=== PATIENT | female | born 1995 | race Caucasian/White ===

== ENCOUNTER → 2018-02-23 | Outpatient (REF) | payer OTHER | LOC: M SFHCLERA 15:18 | DX: R30.0 Dysuria (principal) ==

== ENCOUNTER → 2019-05-28 | Outpatient (CLI) | payer OTHER ==
--- NOTE | 2019-05-28 18:01 | REP ---
REASON: Assess IUD placement. PRIORS: None. Transvesical and transvaginal imaging was obtained. The uterus measures 7.3 x 3.2 x 4.3 cm. The parenchymal echo pattern is within normal limits. Within the endometrial cavity there is a specular reflection consistent with an IUD. There is no free fluid in the cul-de-sac. Right ovary measures 2.8 x 2.8 x 3.3 cm and is within normal limits with an RI of 0.58. Left ovary measures 2.8 x 1.6 x 2 cm and is within normal limits with an RI of 0.48. Urinary bladder measures 7 x 6 x 8 cm. IMPRESSION: Normal pelvic ultrasound with IUD in proper position. Electronically Signed by Juan Pablo Greenwood DO 05/28/2019 06:06 P
== END ==
LOC: M RAD 16:18
PROVIDERS: ATTEND Nurse Practitioner Family
DX: Z30.431 Encounter for routine checking of intrauterine contraceptive device (principal)

== ENCOUNTER → 2019-12-15 | Outpatient (REF) | payer OTHER | LOC: M SFHCLERA 09:25 | PROVIDERS: ATTEND Physician Assistant | DX: J02.9 Acute pharyngitis, unspecified (principal) ==

== ENCOUNTER → 2019-12-15 | Outpatient (CLI) | payer OTHER | LOC: M LRY 08:25 | DX: Z53.9 Procedure and treatment not carried out, unspecified reason (principal) ==

== ENCOUNTER → 2020-04-04 | Outpatient (REF) | payer OTHER ==
[2020-04-04 15:37] LABS: HEMOGLOBIN 13.3 g/dl (12.0-15.5); MEAN CORPUSCULAR HEMOGLOBIN 29.5 pg (27.0-33.0); MEAN CORPUSCULAR HGB CONC 33.3 g/dl (32.0-36.5); MEAN CORPUSCULAR VOLUME 88.7 fl (80.0-96.0); PLATELET COUNT, AUTOMATED 344 10^3/uL (150-450); RED BLOOD COUNT 4.51 10^6/uL (4.00-5.40)
[2020-04-04 16:44] LABS: HEPATITIS C VIRUS ABY INDEX 0.2 INDEX (<0.8); HIV 1&2 SCREEN CENTAUR NEGATIVE (NEGATIVE)
[2020-04-04 20:42] LABS: CHLAMYDIA DNA AMPLIFICATION NEGATIVE (NEGATIVE); GC DNA AMPLIFICATION NEGATIVE (NEGATIVE)
== END ==
LOC: M PLALAB 13:41
PROVIDERS: ATTEND Advanced Practice Midwife
DX: Z34.01 Encounter for supervision of normal first pregnancy, first trimester (principal)

== ENCOUNTER → 2020-06-16 | Outpatient (CLI) | payer OTHER ==
[~2020-06-16] MED LIST: prenatal vit
--- NOTE | 2020-07-11 11:17 | REP ---
COMPLETE OBSTETRIC ULTRASOUND CLINICAL: Anatomical assessment. TECHNIQUE: Transabdominal obstetric ultrasound with color Doppler evaluation. FINDINGS: Ultrasound examination demonstrates a single live intrauterine in transverse lie with head to maternal right. motion was identified by the technologist. Placenta is noted anteriorly and grade 0 without evidence for placenta previa or abruption. Amniotic fluid volume is subjectively normal. Cervix measures 4.0 cm in length and appears closed. heart rate equals 152 beats per minute. MEASUREMENTS BPD 42 mm 19 weeks 0 days HC 170 mm 19 weeks 5 days AC 144 mm 19 weeks 6 days FL 30 mm 19 weeks 5 days HL 2.9 mm 19 weeks 4 days Estimated gestational age by current measurements 19 weeks 4 days with estimated date of delivery 11/06/2020. Estimated weight 305 grams (88th percentile). Anatomical assessment demonstrates normal cisterna magna, cavum, thalamus, spine, stomach, kidneys/bladder, four chamber heart/cardiac ventricular outflow tracts, three-vessel cord/cord insertion, facial features, and extremities. IMPRESSION: Single live intrauterine in transverse lie demonstrating appropriate estimated weight and growth. Anatomical assessment is complete and normal. No gross abnormalities are identified. MTDD
== END ==
LOC: M WHC 11:25
PROVIDERS: ATTEND Advanced Practice Midwife
DX: Z36.89 Encounter for other specified antenatal screening (principal); Z3A.19 19 weeks gestation of pregnancy

== ENCOUNTER 2020-06-27 07:04 | Emergency (ER) | payer OTHER ==
[~2020-06-27] VITALS: Ht 165.1 cm; Wt 77.2 kg
[2020-06-27] MEDS ORDERED: prenatal vit (07:11)
[2020-06-27] MEDS ORDERED: NS 1,000 ML IV ONE (07:30)
[2020-06-27] MEDS ORDERED: METOCLOPRAMIDE INJ 10MG/2ML VIAL (J2765 PER 1) IV ONE (07:30)
[2020-06-27] MEDS ORDERED: ACETAMINOPHEN 500 MG TAB PO ONE (07:30)
[2020-06-27 08:03] LABS: BASO % 0.3 % (0.0-1.0); EOS # 0.4 10^3/uL (0.0-0.5); EOS % 3.2 % (0.0-3.0); HEMATOCRIT 36.7 % (36.0-47.0); HEMOGLOBIN 12.3 g/dl (12.0-15.5); LYMPH # 1.5 10^3/uL (1.5-5.0); LYMPH % 13.3 % (24.0-44.0); MEAN CORPUSCULAR HEMOGLOBIN 30.8 pg (27.0-33.0); MEAN CORPUSCULAR HGB CONC 33.5 g/dl (32.0-36.5); MEAN CORPUSCULAR VOLUME 91.8 fl (80.0-96.0); MONO # 0.5 10^3/uL (0.0-0.8); MONO % 4.6 % (0.0-5.0); NEUTROPHILS # 8.8 10^3/uL (1.5-8.5); NEUTROPHILS % 77.5 % (36.0-66.0); PLATELET COUNT, AUTOMATED 268 10^3/uL (150-450); WHITE BLOOD COUNT 11.4 10^3/uL (4.0-10.0)
[2020-06-27 08:23] LABS: BLOOD UREA NITROGEN 5 MG/DL (7-18); CALCIUM LEVEL 8.7 MG/DL (8.5-10.1); CARBON DIOXIDE LEVEL 24 MEQ/L (21-32); CHLORIDE LEVEL 108 MEQ/L (98-107); CREATININE FOR GFR 0.59 MG/DL (0.55-1.30); GLOMERULAR FILTRATION RATE > 60.0 (>60); GLUCOSE, FASTING 85 MG/DL (70-100); POTASSIUM SERUM 4.1 MEQ/L (3.5-5.1); SODIUM LEVEL 139 MEQ/L (136-145)
[2020-06-27 10:38] VITALS: BP 140/86
== END 2020-06-27 10:40 | disposition home or self-care (01) ==
LOC: M ED 07:04
DX: O99.89 Other specified diseases and conditions complicating pregnancy, childbirth and the puerperium (principal); R51 Headache; Z3A.20 20 weeks gestation of pregnancy
CPT/HCPCS: 80048; 85025; 96361; 96374; 99284; J2765

== ENCOUNTER → 2020-08-05 | Outpatient (REF) | payer OTHER ==
[2020-08-05 13:32] LABS: HEMATOCRIT 36.4 % (36.0-47.0); HEMOGLOBIN 11.6 g/dl (12.0-15.5); MEAN CORPUSCULAR HEMOGLOBIN 29.7 pg (27.0-33.0); MEAN CORPUSCULAR HGB CONC 31.9 g/dl (32.0-36.5); MEAN CORPUSCULAR VOLUME 93.3 fl (80.0-96.0); PLATELET COUNT, AUTOMATED 296 10^3/uL (150-450); WHITE BLOOD COUNT 13.7 10^3/uL (4.0-10.0)
== END ==
LOC: M PLALAB 10:11
PROVIDERS: ATTEND Advanced Practice Midwife
DX: Z34.02 Encounter for supervision of normal first pregnancy, second trimester (principal)

== ENCOUNTER 2020-09-15 08:59 | Outpatient (CLI) | payer OTHER ==
[~2020-09-15] VITALS: Ht 165.1 cm; Wt 84.2 kg
[2020-09-15 09:10] VITALS: BP 122/67
[2020-09-15] MEDS ORDERED: LR 1,000 ML IV SCH (09:16)
[2020-09-15] MEDS ORDERED: LACTATED RINGER'S 1000 ML IV STA (09:16)
[2020-09-15 09:57] LABS: HEMOGLOBIN 10.8 g/dl (12.0-15.5); MEAN CORPUSCULAR HEMOGLOBIN 28.9 pg (27.0-33.0); MEAN CORPUSCULAR HGB CONC 31.8 g/dl (32.0-36.5); MEAN CORPUSCULAR VOLUME 90.9 fl (80.0-96.0); PLATELET COUNT, AUTOMATED 282 10^3/uL (150-450); RED BLOOD COUNT 3.74 10^6/uL (4.00-5.40); WHITE BLOOD COUNT 13.6 10^3/uL (4.0-10.0)
[2020-09-15 10:49] LABS: APPEARANCE, URINE HAZY (CLEAR); BACTERIA, URINE AUTO NEGATIVE (NEGATIVE); BILIRUBIN, URINE AUTO NEGATIVE (NEGATIVE); BLOOD, URINE BLOOD 1+ (NEGATIVE); COLOR, URINE YELLOW (YELLOW); GLUCOSE, URINE (UA) AUTO NEGATIVE (NEGATIVE); KETONE, URINE AUTO NEGATIVE (NEGATIVE); LEUKOCYTE ESTERASE, URINE AUTO NEGATIVE (NEGATIVE); MUCUS, URINE SMALL (NEGATIVE); NITRITE, URINE AUTO NEGATIVE (NEGATIVE); PROTEIN, URINE AUTO NEGATIVE (NEGATIVE); RBC, URINE AUTO 8 /HPF (0-3); SPECIFIC GRAVITY URINE AUTO 1.019 (1.002-1.035); SQUAMOUS EPITHELIAL CELL UR AU 3 /HPF (0-6); UROBILINOGEN, URINE AUTO 0.2 mg/dL (0.0-2.0); WBC, URINE AUTO 2 /HPF (0-3)
[2020-09-15] MEDS ORDERED: PROMETHAZINE INJ 25 MG/ML VIAL (J2550) IV PRN (11:30)
[2020-09-15] MEDS ORDERED: MORPHINE 4 MG/ML 1ML VIAL/SYRINGE (J2270) IV ONE (11:30)
--- NOTE | 2020-09-15 11:33 | REP ---
INDICATION: flank pain. Thirty-one weeks gestation. COMPARISON: None. TECHNIQUE: Transabdominal urinary tract sonography. FINDINGS: Scanning of the level of the urinary bladder shows a subtle echogenic focus the right posterior bladder wall in the region of the ureteral 0 vesicle junction. There is absence of emptying ureteral jets from the right ureter. Emptying jets are noted repeatedly on the left.. Renal cortical echogenicity pattern is normal bilaterally and contours are smooth. There is mild to moderate right-sided hydronephrosis. The right ureter is not directly seen. No intrarenal calculus is observed. Right kidney measures 11.2 x 6.1 x 6.3 cm. Resistive index in the intralobar arteries of the right kidney is slightly elevated at 0.69 compared to 0.56 on the left. Left renal dimensions are 11.2 x 6.0 x 6.2 cm. No left-sided hydronephrosis is seen. No cyst or mass is observed... IMPRESSION: Mild to moderate right-sided hydronephrosis. Absence of emptying ureteral jets from the right kidney. Question distal ureteral stone visible at the UVJ on two-dimensional scanning.. <Electronically signed by Eric Buck > 09/15/20 [id number]
[2020-09-15] MEDS ORDERED: TAMSULOSIN 0.4 MG CAP PO ONE (12:00)
[2020-09-15] MEDS ORDERED: FLOM0.4C39 PO (16:05)
[2020-09-15] MEDS ORDERED: OXYC1TAB23 PO (16:07)
--- NOTE | 2020-09-15 16:44 | IPNPDOC ---
Text Note Date of Service The patient was seen on 09/15/20. NOTE S: 24yo G1 at 30w6d with right flank pain. Denies f/c, vaginal bleeding, LOF or ctx O: vs, AF cat 1 tracing, no ctx gen: well appearing abd: nttp bacK: no CVA tenderness cx: deferred Renal showing mile to moderate hydronephrosis with ? sonte in distal ureter. -Patient given .4mg flomax, 4mg morphine and 12.5mg phenergan with improvement of her pain A/P: 24yo G1 at 30w6d with right renal stone Reassuring status -home with percocet#14, flomax#14 -PTL and fever precautions - f/u at next OB appt Annmarie Massey MD VS,Remberto, I+O VSRebmerto, I+O Laboratory Tests 09/15/20 09:40 Vital Signs Date Time Temp Pulse Resp B/P (MAP) Pulse Ox O2 Delivery O2 Flow Rate FiO2 09/15/20 11:58 20 09/15/20 11:30 Room Air 09/15/20 09:10 98.3 106 122/67 (85) ANNMARIE MASSEY MD. Sep 15, 2020 16:44
--- NOTE | 2020-09-16 07:36 | REP ---
INDICATION: flank pain COMPARISON: 06/16/2020 TECHNIQUE: Transabdominal obstetrical ultrasound with color Doppler evaluation. FINDINGS: Examination demonstrates a single live advanced intrauterine in cephalic presentation. motion is identified by technologist. Placenta is noted right lateral and grade 1 without evidence for placenta previa or abruption. Amniotic fluid volume is normal. Cervix appears closed. Gestational age by 1st ultrasound 32 weeks 3 days with ANNA 11/07/2020. FHR equals 135 beats per minute. Biophysical profile score: 8/8 TERA: 9.4 cm (8.5-24.3) IMPRESSION: Single live advanced gestation in cephalic presentation demonstrating appropriate amniotic fluid index and biophysical profile score. <Electronically signed by David Dutton > 09/16/20 [id number]
== END 2020-09-15 14:30 | disposition home or self-care (01) ==
LOC: M LDO 08:59
PROVIDERS: ATTEND Obstetrics & Gynecology
DX: O26.833 Pregnancy related renal disease, third trimester (principal); N20.0 Calculus of kidney; Z3A.30 30 weeks gestation of pregnancy
CPT/HCPCS: 59025; 76775; 76819; 81001; 85027; 87086; 96374; 96375; G0378; G0463; J2270

== ENCOUNTER → 2020-10-17 | Outpatient (REF) | payer OTHER ==
[~2020-10-17] MED LIST changes: +FLOM0.4C39 PO; +OXYC1TAB23 PO
== END ==
LOC: M PLALAB 14:15
PROVIDERS: ATTEND Obstetrics & Gynecology
DX: Z34.93 Encounter for supervision of normal pregnancy, unspecified, third trimester (principal); Z3A.36 36 weeks gestation of pregnancy

== ENCOUNTER 2020-11-08 08:48 | Outpatient (CLI) | payer OTHER ==
[~2020-11-08] VITALS: Ht 165.1 cm; Wt 87.5 kg
[2020-11-08 09:16] VITALS: BP 132/85
[2020-11-08 09:45] VITALS: BP 131/86
[2020-11-08] MEDS ORDERED: TUMS500C PO (09:52)
[2020-11-08 10:12] VITALS: BP 126/64
[2020-11-08 10:15] LABS: HEMATOCRIT 38.1 % (36.0-47.0); HEMOGLOBIN 12.3 g/dl (12.0-15.5); MEAN CORPUSCULAR HEMOGLOBIN 29.3 pg (27.0-33.0); MEAN CORPUSCULAR HGB CONC 32.3 g/dl (32.0-36.5); MEAN CORPUSCULAR VOLUME 90.7 fl (80.0-96.0); PLATELET COUNT, AUTOMATED 262 10^3/uL (150-450); WHITE BLOOD COUNT 11.9 10^3/uL (4.0-10.0)
[2020-11-08 10:33] LABS: TOTAL PROTEIN,RANDOM URINE 23.9 MG/DL (0.0-12.0)
[2020-11-08 10:42] VITALS: BP 113/63
[2020-11-08 10:42] LABS: ALT/SGPT 14 U/L (12-78); BILIRUBIN,TOTAL 0.2 MG/DL (0.2-1.0); CREATININE FOR GFR 0.63 MG/DL (0.55-1.30); GLOMERULAR FILTRATION RATE > 60.0 (>60); LDH LACTATE DEHYDROGENASE 202 U/L (84-246); URIC ACID 3.8 MG/DL (2.6-6.0)
[2020-11-08 11:12] VITALS: BP 95/53
--- NOTE | 2020-11-08 13:36 | IPNPDOC ---
Text Note Date of Service The patient was seen on 11/08/20. NOTE S: 24yo G1 at 39w4d presents from clinic for evaluation for elevated BP. Denies headaches, visual changes, abd pain, ctx, LOF or vaginal bleeding. O: vs serial BP wnl. Cat 1 tracing Gen: well appearing abd: soft, gravid, nttp Labs:WNL A/P: 24yo G1 at 39w4d with isolated elevated BP, no further hypertension reassuring status -home with Labor precautions and FKCs -f/u at next OB appt. Annmarie Massey MD VS,Remberto, I+O VS, Remberto I+O Laboratory Tests 11/08/20 09:49 Vital Signs Date Time Temp Pulse Resp B/P (MAP) Pulse Ox O2 Delivery O2 Flow Rate FiO2 11/08/20 11:12 73 18 95/53 (67) 11/08/20 09:16 98.0 ANNMARIE MASSEY MD. Nov 08, 2020 13:36
== END 2020-11-08 11:30 | disposition home or self-care (01) ==
LOC: M LDO 08:48
PROVIDERS: ATTEND Obstetrics & Gynecology
DX: O16.3 Unspecified maternal hypertension, third trimester (principal); Z3A.39 39 weeks gestation of pregnancy
CPT/HCPCS: 36415; 59025; 82247; 82565; 82570; 83615; 84156; 84450; 84460; 84550; 85027; G0378; G0463

== ENCOUNTER 2020-11-14 01:08 | Inpatient (IN) | payer OTHER ==
[2020-11-14] VITALS (26 sets, daily range): BP systolic 87–149; BP diastolic 50–87
[~2020-11-14] VITALS: Ht 165.1 cm; Wt 89.4 kg
[~2020-11-14 01:08] MED LIST changes: +TUMS500C PO
--- NOTE | 2020-11-14 02:46 | HPEPDOC ---
Obstetrical History & Physical General Date of Admission Nov 14, 2020 at 01:39 History of Present Illness 24 yo at 40 3/7 weeks by LMP c/w ultrasound (EDC=11/11/2020) presents after having SW=445/100 at home on two occasions. She had increased swelling in her lower extremities. no CARSON's. She had one isolated elevated BP in the office the prior week. Information Provided By: Patient Age: 24 : 1 Term: 0 Pre-term: 0 Abortions: 0 Livin Care Care: Good Care Dating Final EDC by: LMP, 1st trimester (US) Estimated Date of Confinement: Nov 11, 2020 Past Medical History Past Obstetrical History : Past Obstetrical History: [employer] History: No pertinent history Past Medical History Surgical History: Denies/None Social History Family situation: Spouse/partner home Psychosocial History: No pertinent psych hx * Smoker: non-smoker Allergies Coded Allergies: No Known Allergies (Unverified , 09/15/20) Medications Scheduled PRN Calcium Carbonate (Tums) 200 Mg Tab.chew, 500 MG PO for INDIGESTION Miscellaneous Medications [ vit] Physical Examination Physical Examination GENERAL: Alert and oriented times three. BREAST: . ABDOMEN: Gravid and non-tender to touch. FETUS: Is vertex (VTX) by sterile vaginal examination (SVE), fetus is vertex (VTX) by [place]. HEART RATE: Regular rate and rhythm. LUNGS: Clear to auscultation (CTA). EXTREMITIES: No edema. No clonus. Deep tendon reflexes (DTRs) + . Laboratory Data 24H LABS Laboratory Tests 2 11/14/20 01:48: Serology Scanned Report Hepatitis B Testing Pertinent Laboratoy Data Group B Streptococcus: Negative Vaginal Examination Dilation: 1cm Effacement: 70% Station: -2 Cervical Consistency: Soft Cervical Position: Posterior Presentation: Cephalic presentation Assessment Variability: Moderate Accelerations: Positive Decelerations: None Tocometer Contractions: Yes Frequency: irregular Assessment/Plan Assessment Pt is a 24-year-old (G)1 para (P)0 at 40+3 weeks by ultrasound presents to Labor and Delivery (L&D) for labor induction . Plan BP within reasonable range here Admit and orient. Cutting Supervisor and consent. Group B Streptococcus (GBS)negative C-S as appropriate. PONCE MEADOWS MD Nov 14, 2020 02:46
[2020-11-14 02:57] LABS: HEMATOCRIT 37.2 % (36.0-47.0); HEMOGLOBIN 11.7 g/dl (12.0-15.5); MEAN CORPUSCULAR HEMOGLOBIN 28.6 pg (27.0-33.0); MEAN CORPUSCULAR HGB CONC 31.5 g/dl (32.0-36.5); PLATELET COUNT, AUTOMATED 251 10^3/uL (150-450); RED BLOOD COUNT 4.09 10^6/uL (4.00-5.40); WHITE BLOOD COUNT 11.8 10^3/uL (4.0-10.0)
[2020-11-14] MEDS: miSOPROStol 50MCG 1/2 TABLET SL SCH ×2 (03:11→08:17)
[2020-11-14 03:22] LABS: ALT/SGPT 11 U/L (12-78); BILIRUBIN,TOTAL 0.4 MG/DL (0.2-1.0); CREATININE FOR GFR 0.68 MG/DL (0.55-1.30); GLOMERULAR FILTRATION RATE > 60.0 (>60); LDH LACTATE DEHYDROGENASE 154 U/L (84-246); URIC ACID 3.8 MG/DL (2.6-6.0)
--- NOTE | 2020-11-14 11:02 | IPNPDOC ---
Obstetrical Progress Note Date of Service Nov 14, 2020 Subjective Mary is very uncomfortable after 2nd dose of cytotec, crying through contractions. She has been in the tub and moving around the room this morning. Requesting an epidural. Objective Vital Signs Date Time Temp Pulse Resp B/P (MAP) Pulse Ox O2 Delivery O2 Flow Rate FiO2 11/14/20 08:11 99.2 80 124/69 (87) 11/14/20 04:05 17 Assessment Heart Rate (FHR): 125 Variability: Moderate Accelerations: Positive Decelerations: None Heart Rate Tracing: Category I Tocometer Contractions: Yes Frequency: regular, other (2-4min.) Duration: greater than 60 seconds Strength: palpated as moderate, resting tone palp/soft Sterile Vaginal Examination Dilation: 1cm (1-2) Effacement (%): other (95%) Station: -1 Cervical Consistency: Soft Cervical Position: Posterior Postion/Presentation: Cephalic presentation Assessment and Plan Age: 24 : 1 Term: 0 Pre-term: 0 Abortions: 0 Livin EGA at Admission: 40.3 Status: Reassuring Group B Streptococcus: Negative Anticipate: Vaginal Delivery Additional Comments Plan for patient to get an epidural for labor pain management. TOI PLATA CNM Nov 14, 2020 11:02
[2020-11-14] MEDS ORDERED: FENTANYL 2MCG/ML ROPIVACAINE 0.2% IN 0.9% NACL 100ML IVBAG As Ordered ONE (11:17)
[2020-11-14] MEDS: LR 1,000 ML IV SCH ×2 (12:24→15:38)
[2020-11-14] MEDS ORDERED: ONDANSETRON 4MG/2ML VIAL IV PRN (12:45)
[2020-11-14] MEDS ORDERED: REFRIGERATOR IV KEYS XX PRN (12:45)
[2020-11-14] MEDS ORDERED: FENTANYL/ROPIVACAINE/NACL BAG 100 ML EPIDURAL SCH (12:45)
[2020-11-14] MEDS ORDERED: EPIDURAL/PCA KEYS XX PRN (12:45)
[2020-11-14] MEDS ORDERED: NALOXONE INJ 0.4MG/1ML VIAL (J2310 PER 1MG) IV PRN (12:45)
[2020-11-14] MEDS ORDERED: LACTATED RINGER'S 1000 ML IV PRN (12:45)
[2020-11-14] MEDS ORDERED: EPIDURAL COMMENT XX SCH (12:45)
[2020-11-14] MEDS ORDERED: ePHEDrine SULFATE 25 MG/5 ML(5MG/ML) SYRINGE IV PRN (12:45)
[2020-11-14] MEDS ORDERED: diphenhydrAMINE 50MG/ML VIAL (J1200) IV PRN (12:45)
[2020-11-14] MEDS ORDERED: OXYTOCIN DRIP 30 UNITS in IV 1 EA IV SCH ×2 (13:00→17:59)
[2020-11-14] MEDS ORDERED: BENZOCAINE 20% HEMORRHOIDAL OINTMENT 28GM TUBE TOP PRN (18:00)
[2020-11-14] MEDS ORDERED: DOCUSATE SODIUM 100MG CAPSULE PO PRN (18:00)
[2020-11-14] MEDS ORDERED: MEASLES,MUMPS,RUBELLA VACCINE INJ (MMR-II) (90707) SC SCH (18:00)
[2020-11-14] MEDS ORDERED: ANUSOL HC CREAM 30GM TOP PRN (18:00)
[2020-11-14] MEDS ORDERED: ACETAMINOPHEN TAB 650MG DOSE (2X325MG) PO PRN (18:00)
[2020-11-14] MEDS ORDERED: RHOGAM 300 MCG (1500 IU) INJ (J2790) IM SCH (18:00)
[2020-11-14] MEDS ORDERED: ACETAMINOPHEN 500 MG TAB PO PRN (18:00)
[2020-11-14] MEDS ORDERED: METHYLERGONOVINE MALEATE 0.2 MG TAB PO PRN (18:00)
--- NOTE | 2020-11-14 18:09 | DNPDOC ---
[facility] Delivery Note Delivery Note DATE OF DELIVERY: 11/14/2020 @ 1733 PREDELIVERY DIAGNOSIS: 40-3/7 weeks' gestation and labor. POST DELIVERY DIAGNOSIS: Delivered. PROCEDURE: Spontaneous vaginal delivery PROVIDER: Toi Plunkett CNM, SEBASTIAN and MARISSA Hou ANESTHESIA: Epidural. ESTIMATED BLOOD LOSS: 400 mL. FINDINGS: 7 pound 7 ounce, 3370g Male , Score 8/9, left compound hand DELIVERY SUMMARY: Mary is a 24-year-old 1 now para 1-0-0-1 who was admitted to labor and delivery for elective IOL. Cytotec x2, then Pitocin was started post epidural. She progressed to full dilation at 1654 and began pushing. head delivered OA with restitution to LOT, anterior shoulder and corpus followed with maternal pushing efforts. Right compound hand with delivery. Infant placed skin to skin on maternal abdomen, vigorous with st imulation. Delayed cord clamping until pulsations ceased. Cord clamped x2 and cut by FOB. Cord blood collected. 3 vessel cord noted. Intact placenta via Hay mechanism delivered at 1745. Fundal massage and IV Pitocin bolus initiated. Uterine sweep released clots from cervix. Fundus firmed to umbilicus. Vagina, perineum, and cervix examined for lacerations, intact, no repair needed. Sponges counted and correct. Parents plan to name him "Vinh" and breastfeed. Mother and infant left in stable condition. TOI PLUNKETT CNM Nov 14, 2020 18:09
[2020-11-14] MEDS: IBUPROFEN 600MG TAB PO PRN (20:00)
[2020-11-15 06:00] VITALS: BP 139/63
--- NOTE | 2020-11-15 07:15 | IPNPDOC ---
Progress Note Date of Service: Nov 15, 2020 Day#: 1 Progress Note SUBJECT: Mary is a 24-year-old 1 now Para 1-0-0-1 status post uncomp licated spontaneous vaginal delivery, doing well day # 1. She has been ambulating, voiding spontaneously without issue and tolerating regular diet. without issue. Reports lochia is like a normal period. Pain well controlled with Tylenol and Motrin. Denies chest pain, SOB, headache, visual changes, nausea, epigastric pain. OBJECTIVE: VITAL SIGNS: Within normal limits, afebrile. Alert and oriented times three. Respirations regular, no accessory muscle use. Abdomen: Fundus firm at U-2. Soft, NTTP. Extremities: No edema, no calf tenderness. Minimal lochia. ASSESSMENT: Day 1 PLAN: 1. Discharge to home tomorrow. 2. Tylenol and Motrin for pain. 3. Encourage and ambulation. 4. May shower today. 5. Nursing care per policy. 6. consultation [facility] Vital Signs Date Time Temp Pulse Resp B/P (MAP) Pulse Ox O2 Delivery O2 Flow Rate FiO2 11/15/20 06:00 98.3 103 17 139/63 (88) 98 Room Air I&O- Last 24 Hours up to 6 AM 11/15/20 06:00 Intake Total 1620 ml Output Total 1100 ml Balance 520 ml TOI PLATA CNM Nov 15, 2020 07:15
[2020-11-15] MEDS: PRENATAL VITAMINS CHEWABLE TABLET PO SCH (08:35)
[2020-11-15] MEDS: IBUPROFEN 600MG TAB PO PRN (08:35)
[2020-11-15 18:00] VITALS: BP 116/77
[2020-11-15] MEDS: IBUPROFEN 800 MG TAB PO PRN (19:46)
[2020-11-16] MEDS: IBUPROFEN 800 MG TAB PO PRN (04:30)
[2020-11-16 05:20] VITALS: BP 115/62
[2020-11-16] MEDS: PRENATAL VITAMINS CHEWABLE TABLET PO SCH (08:05)
== END 2020-11-16 12:00 | disposition home or self-care (01) | DRG 807 ==
LOC: M LDO 01:08 → M LDI 01:39 → M OBS 20:10
PROVIDERS: ADMIT Specialist; ATTEND Advanced Practice Midwife
PROC: 10E0XZZ Delivery of Products of Conception, External Approach (ICD-10-PCS; principal; 2020-11-14)
PROC: 3E0P7GC Introduction of Other Therapeutic Substance into Female Reproductive, Via Natural or Artificial Opening (ICD-10-PCS; 2020-11-14)
DX: O48.0 Post-term pregnancy (principal); Z37.0 Single live birth; Z3A.40 40 weeks gestation of pregnancy; O32.6XX0 Maternal care for compound presentation, not applicable or unspecified

== ENCOUNTER → 2021-05-05 | Outpatient (REF) | LOC: M LABSMTC 09:42 | PROVIDERS: ATTEND Pediatrics | DX: Z20.822 Contact with and (suspected) exposure to COVID-19 (principal) ==

== ENCOUNTER → 2021-05-18 | Outpatient (REF) | payer OTHER | LOC: M SFHCWAGY 17:31 | PROVIDERS: ATTEND Advanced Practice Midwife | DX: Z12.4 Encounter for screening for malignant neoplasm of cervix (principal); Z77.9 Other contact with and (suspected) exposures hazardous to health ==

== ENCOUNTER → 2021-12-06 | Outpatient (REF) | LOC: M LABSMTC 11:25 | PROVIDERS: ATTEND Family Medicine | DX: Z11.52 Encounter for screening for COVID-19 (principal); Z20.822 Contact with and (suspected) exposure to COVID-19 ==

== ENCOUNTER → 2022-08-13 | Outpatient (REF) | payer BC ==
[2022-08-13 19:43] LABS: GC DNA AMPLIFICATION NEGATIVE (NEGATIVE)
== END ==
LOC: M SFHCWAGY 17:32
PROVIDERS: ATTEND Advanced Practice Midwife
DX: Z34.81 Encounter for supervision of other normal pregnancy, first trimester (principal)

== ENCOUNTER → 2022-09-10 | Outpatient (CLI) | payer BC | LOC: M WHC 11:38 | PROVIDERS: ATTEND Specialist | DX: Z36.87 Encounter for antenatal screening for uncertain dates (principal); Z3A.18 18 weeks gestation of pregnancy ==

== ENCOUNTER → 2022-10-10 | Outpatient (REF) ==
[2022-10-10 13:04] LABS: RSV AMPLIFICATION NEGATIVE (NEGATIVE)
== END ==
LOC: M LABSMTC 09:52
PROVIDERS: ATTEND Family Medicine
DX: Z20.818 Contact with and (suspected) exposure to other bacterial communicable diseases (principal)

== ENCOUNTER → 2022-11-05 | Outpatient (CLI) | payer BC ==
[2022-11-05 15:21] LABS: HEMATOCRIT 34.8 % (36.0-47.0); HEMOGLOBIN 11.1 g/dl (12.0-15.5); MEAN CORPUSCULAR HEMOGLOBIN 29.3 pg (27.0-33.0); MEAN CORPUSCULAR HGB CONC 31.9 g/dl (32.0-36.5); MEAN CORPUSCULAR VOLUME 91.8 fl (80.0-96.0); PLATELET COUNT, AUTOMATED 297 10^3/uL (150-450); RED BLOOD COUNT 3.79 10^6/uL (4.00-5.40); WHITE BLOOD COUNT 11.9 10^3/uL (4.0-10.0)
[2022-11-05 16:39] LABS: GC DNA AMPLIFICATION NEGATIVE (NEGATIVE)
== END ==
LOC: M PLALAB 09:45
PROVIDERS: ATTEND Advanced Practice Midwife
DX: Z34.82 Encounter for supervision of other normal pregnancy, second trimester (principal)

== ENCOUNTER → 2022-12-04 | Outpatient (CLI) | payer BC | LOC: M WHC 10:45 | PROVIDERS: ATTEND Obstetrics & Gynecology | DX: O26.842 Uterine size-date discrepancy, second trimester (principal); Z3A.30 30 weeks gestation of pregnancy ==

== ENCOUNTER → 2023-01-14 | Outpatient (REF) | payer BC | LOC: M SFHCWAGY 17:51 | PROVIDERS: ATTEND Obstetrics & Gynecology | DX: Z3A.36 36 weeks gestation of pregnancy (principal) ==

== ENCOUNTER 2023-02-12 15:11 | Inpatient (IN) | payer BC ==
[~2023-02-12] VITALS: Ht 165.1 cm; Wt 92.2 kg
[2023-02-12] VITALS (8 sets, daily range): BP systolic 117–138; BP diastolic 64–86
[2023-02-12] MEDS ORDERED: PRENTAB9 PO (15:32)
[2023-02-12] MEDS ORDERED: SERT-141 PO (15:32)
[2023-02-12] MEDS ORDERED: HOME MED LIST COMPLETE! XX SCH (15:35)
[2023-02-12] MEDS ORDERED: LACTATED RINGER'S 1000 ML IV STA (15:41)
[2023-02-12] MEDS ORDERED: CARBOPROST TROMETHAMINE 250 MCG/ML AMP IM PRN (15:45)
[2023-02-12] MEDS ORDERED: METHYLERGONOVINE MALEATE 0.2MG/ML 1ML VIAL IM PRN (15:45)
[2023-02-12] MEDS ORDERED: OXYTOCIN DRIP 30 UNITS in IV 1 EA IV PRN (15:45)
[2023-02-12] MEDS ORDERED: TRANEXAMIC ACID INJection 1,000 MG in NS 100 ML IV PRN (15:45)
[2023-02-12] MEDS ORDERED: LIDOCAINE 1% MDV 20ML VIAL INFIL PRN (15:45)
[2023-02-12] MEDS ORDERED: LR 1,000 ML IV SCH (15:45)
[2023-02-12 16:06] LABS: MEAN CORPUSCULAR HEMOGLOBIN 25.8 pg (27.0-33.0); MEAN CORPUSCULAR HGB CONC 31.3 g/dl (32.0-36.5); MEAN CORPUSCULAR VOLUME 82.7 fl (80.0-96.0); PLATELET COUNT, AUTOMATED 312 10^3/uL (150-450); RED BLOOD COUNT 3.87 10^6/uL (4.00-5.40)
[2023-02-12] MEDS: miSOPROStol 50MCG 1/2 TABLET SL SCH ×2 (17:00→21:10)
[2023-02-13] VITALS (30 sets, daily range): BP systolic 105–166; BP diastolic 56–95
[2023-02-13] MEDS ORDERED: OXYTOCIN DRIP 30 UNITS in IV 1 EA IV SCH ×2 (01:15→05:40)
[2023-02-13] MEDS ORDERED: LR 500 ML IV PRN (02:00)
[2023-02-13] MEDS ORDERED: ONDANSETRON 4MG 2ML VIAL IV PRN ×2 (02:00→05:40)
[2023-02-13] MEDS ORDERED: FENTANYL/ROPIVACAINE/NACL BAG 100 ML EPIDURAL SCH (02:00)
[2023-02-13] MEDS ORDERED: ePHEDrine SULFATE 25 MG/5 ML(5MG/ML) SYRINGE IVP PRN (02:00)
[2023-02-13] MEDS ORDERED: EPIDURAL/PCA KEYS XX PRN (02:00)
[2023-02-13] MEDS ORDERED: diphenhydrAMINE 50MG/ML VIAL IV PRN (02:00)
[2023-02-13] MEDS ORDERED: NALOXONE INJ 0.4MG/1ML VIAL IV PRN (02:00)
[2023-02-13] MEDS ORDERED: LR 1,000 ML IV SCH (05:40)
[2023-02-13] MEDS ORDERED: DOCUSATE SODIUM 100MG CAPSULE PO PRN (05:40)
[2023-02-13] MEDS ORDERED: RHOGAM 300MCG (1500IU) INJ IM SCH (05:40)
[2023-02-13] MEDS ORDERED: DIBUCAINE 1% OINTMENT 30GM TOP PRN (05:40)
[2023-02-13] MEDS ORDERED: ANUSOL HC CREAM 30GM TOP PRN (05:40)
[2023-02-13] MEDS ORDERED: ACETAMINOPHEN TAB 650MG DOSE (2X325MG) PO PRN (05:40)
[2023-02-13] MEDS ORDERED: METHYLERGONOVINE MALEATE 0.2 MG TAB PO PRN (05:40)
[2023-02-13] MEDS ORDERED: IBUPROFEN 600MG TAB PO PRN (05:40)
[2023-02-13] MEDS ORDERED: ACETAMINOPHEN 500 MG TAB PO PRN (05:40)
[2023-02-13] MEDS: PRENATAL VITAMINS CHEWABLE TABLET PO SCH (08:30)
[2023-02-13] MEDS: IBUPROFEN 800 MG TAB PO PRN ×2 (12:52→21:04)
[2023-02-13] MEDS ORDERED: SERTRALINE HCL 50 MG TAB PO SCH (21:00)
[2023-02-14 06:00] VITALS: BP 117/70
[2023-02-14] MEDS: PRENATAL VITAMINS CHEWABLE TABLET PO SCH (07:53)
[2023-02-14] MEDS ORDERED: ACET-683 PO (09:13)
[2023-02-14] MEDS ORDERED: IBUP-1022 PO (09:13)
[2023-02-14] MEDS ORDERED: COLA100C5 PO (09:13)
[2023-02-15] MEDS ORDERED: MEASLES,MUMPS,RUBELLA VACCINE INJ (MMR-II) SC.IMMUN ONE (09:00)
== END 2023-02-14 11:30 | disposition home or self-care (01) | DRG 560 ==
LOC: M LDI 15:11 → M OBS 02-13 08:00
PROVIDERS: ADMIT Obstetrics & Gynecology; ATTEND Obstetrics & Gynecology
PROC: 3E0P7GC Introduction of Other Therapeutic Substance into Female Reproductive, Via Natural or Artificial Opening (ICD-10-PCS; 2023-02-12)
PROC: 10E0XZZ Delivery of Products of Conception, External Approach (ICD-10-PCS; principal; 2023-02-13)
DX: O48.0 Post-term pregnancy (principal); O99.344 Other mental disorders complicating childbirth; F32.A Depression, unspecified; Z3A.40 40 weeks gestation of pregnancy; Z37.0 Single live birth

== ENCOUNTER → 2023-07-05 | Outpatient (CLI) | payer BC ==
[~2023-07-05] MED LIST changes: +ACET-683 PO; +COLA100C5 PO; +IBUP-1022 PO; +PRENTAB9 PO; +SERT-141 PO
[2023-07-05 17:57] LABS: BASO % 0.5 % (0.0-1.0); EOS # 0.3 10^3/uL (0.0-0.5); EOS % 4.4 % (0.0-3.0); HEMATOCRIT 39.3 % (36.0-47.0); HEMOGLOBIN 12.7 g/dl (12.0-15.5); LYMPH # 2.1 10^3/uL (1.5-5.0); LYMPH % 27.2 % (24.0-44.0); MEAN CORPUSCULAR HEMOGLOBIN 27.3 pg (27.0-33.0); MEAN CORPUSCULAR HGB CONC 32.3 g/dl (32.0-36.5); MEAN CORPUSCULAR VOLUME 84.5 fl (80.0-96.0); MONO # 0.6 10^3/uL (0.0-0.8); MONO % 8.1 % (2.0-8.0); NEUTROPHILS # 4.6 10^3/uL (1.5-8.5); NEUTROPHILS % 59.5 % (36.0-66.0); PLATELET COUNT, AUTOMATED 299 10^3/uL (150-450); RED BLOOD COUNT 4.65 10^6/uL (4.00-5.40); WHITE BLOOD COUNT 7.7 10^3/uL (4.0-10.0)
[2023-07-05 18:37] LABS: THYROID STIMULATING HORMONE 1.286 uIU/ML (0.55-4.78)
[2023-07-05 18:39] LABS: FREE T4 1.03 NG/DL (0.89-1.76)
[2023-07-05 18:44] LABS: ALKALINE PHOSPHATASE 117 U/L (46-116); ALT/SGPT 23 U/L (7.0-40); AST/SGOT 20 U/L (<34); BILIRUBIN,TOTAL 0.6 MG/DL (0.3-1.2); BLOOD UREA NITROGEN 15 MG/DL (9-23); CALCIUM LEVEL 9.4 MG/DL (8.5-10.1); CARBON DIOXIDE LEVEL 28 MMOL/L (20-31); CHLORIDE LEVEL 102 MMOL/L (98-107); CREATININE FOR GFR 0.85 MG/DL (0.55-1.30); GLOMERULAR FILTRATION RATE > 60.0 (>60); GLUCOSE, FASTING 97 MG/DL (60-100); POTASSIUM SERUM 4.1 MMOL/L (3.5-5.1); SODIUM LEVEL 139 MMOL/L (136-145); TOTAL PROTEIN 7.6 G/DL (5.7-8.2)
== END ==
LOC: M PLALAB 15:10
PROVIDERS: ATTEND Nurse Practitioner Family
DX: Z00.00 Encounter for general adult medical examination without abnormal findings (principal); R53.83 Other fatigue

== ENCOUNTER → 2023-09-24 | Outpatient (REF) | payer BC ==
[2023-09-24 19:24] LABS: CHLAMYDIA DNA AMPLIFICATION NEGATIVE (NEGATIVE); GC DNA AMPLIFICATION NEGATIVE (NEGATIVE)
== END ==
LOC: M SFHCWAGY 17:01
PROVIDERS: ATTEND Obstetrics & Gynecology
DX: Z12.4 Encounter for screening for malignant neoplasm of cervix (principal); Z11.3 Encounter for screening for infections with a predominantly sexual mode of transmission
CPT/HCPCS: 87661; 87810; 87850; G0123

== ENCOUNTER → 2023-12-11 | Outpatient (REF) | LOC: M EMP 08:02 | PROVIDERS: ATTEND Family Medicine | DX: Z01.89 Encounter for other specified special examinations (principal) ==

== ENCOUNTER → 2024-07-11 | Outpatient (CLI) | payer BC ==
[2024-07-11 10:47] LABS: BASO % 0.3 % (0.0-1.0); EOS # 0.3 10^3/uL (0.0-0.5); HEMATOCRIT 40.9 % (36.0-47.0); HEMOGLOBIN 13.1 g/dl (12.0-15.5); LYMPH % 21.8 % (24.0-44.0); MEAN CORPUSCULAR HEMOGLOBIN 28.1 pg (27.0-33.0); MEAN CORPUSCULAR VOLUME 87.8 fl (80.0-96.0); MONO # 0.6 10^3/uL (0.0-0.8); MONO % 6.4 % (2.0-8.0); NEUTROPHILS # 6.2 10^3/uL (1.5-8.5); NEUTROPHILS % 68.1 % (36.0-66.0); PLATELET COUNT, AUTOMATED 284 10^3/uL (150-450); RED BLOOD COUNT 4.66 10^6/uL (4.00-5.40); WHITE BLOOD COUNT 9.1 10^3/uL (4.0-10.0)
[2024-07-11 11:18] LABS: ALBUMIN 3.8 G/DL (3.2-5.2); ALKALINE PHOSPHATASE 84 U/L (46-116); ALT/SGPT 30 U/L (7.0-40); AST/SGOT 17 U/L (<34); BILIRUBIN,TOTAL 0.5 MG/DL (0.3-1.2); BLOOD UREA NITROGEN 12 MG/DL (9-23); CARBON DIOXIDE LEVEL 29 MMOL/L (20-31); CHLORIDE LEVEL 106 MMOL/L (98-107); CHOLESTEROL LEVEL 222 MG/DL (<200); CREATININE FOR GFR 0.76 MG/DL (0.55-1.30); GLOMERULAR FILTRATION RATE > 60.0 (>60); GLUCOSE, FASTING 90 MG/DL (60-100); POTASSIUM SERUM 4.1 MMOL/L (3.5-5.1); SODIUM LEVEL 139 MMOL/L (136-145); TOTAL PROTEIN 7.5 G/DL (5.7-8.2); TRIGLYCERIDES LEVEL 257 MG/DL (<150)
[2024-07-11 12:26] LABS: CHOLESTEROL RISK RATIO 3.63 (<5); HDL CHOLESTEROL 61.1 MG/DL (>40); LDL CHOLESTEROL 109.5 MG/DL (<100); NON-HDL-C 160.9 MG/DL
== END ==
LOC: M LAB 09:59 → M LAB LCGH 09:59
PROVIDERS: ATTEND Specialist
DX: Z00.01 Encounter for general adult medical examination with abnormal findings (principal); F41.9 Anxiety disorder, unspecified; Z13.220 Encounter for screening for lipoid disorders; E55.9 Vitamin D deficiency, unspecified